=== PATIENT | male | born 1950 | race Caucasian/White ===

== ENCOUNTER 2017-10-08 11:19 | Emergency (ER) | payer MEDICARE, OTHER, SELFPAY | END 2017-10-08 14:07 | disposition home or self-care (01) | PROVIDERS: Emergency Provider Emergency Medicine; PCP Family Medicine; Visit Provider Emergency Medicine | DX: R09.1 Pleurisy (principal); M94.0 Chondrocostal junction syndrome [Tietze] | CPT/HCPCS: 71020; 71046; 80053; 83880; 84484; 85025; 85610; 85730; 93005; 93010; 94664; 96374; 99058; 99285; J1885 ==

== ENCOUNTER 2019-06-28 12:19 | Emergency (ER) | payer MEDICARE, OTHER, SELFPAY ==
[2019-06-28 12:25] VITALS: BP 211/90; PULSE 53; RESP 16; TEMP 35.9; O2SAT 99
--- NOTE | 2019-06-28 13:02 | ED_ITS ---
HPI - General Adult General Chief complaint: Hypertension Stated complaint: Extremely High BP Time Seen by Provider: 06/28/19 12:51 Source: patient Mode of arrival: Ambulatory Limitations: no limitations History of Present Illness HPI narrative: 68-year-old male nonsmoker with noncontributory medical history presents with a chief complaint of steadily rising blood pressures over about the past 10 days. He has never had a history of hypertension and takes no meds but blood pressure was found to be elevated at a routine physical about 10 days ago at which point they requested that he start charting what his blood pressures are doing. Patient denies any symptoms whatsoever. He has no dizziness, lightheadedness or weakness. He denies blurred vision or trouble with speech. Denies chest pain or shortness of breath. He has had no nausea, vomiting or diarrhea. Onset (ago): week(s) Relieving factors: none Exacerbating factors: none Associated symptoms: denies other symptoms Treatments prior to arrival: none Related Data Home Medications Medication Instructions Recorded Confirmed CA PANTOTHENATE/FOLIC ACID/VIT 1 tab PO QDAY #0 10/16/12 06/04/19 (MULTIVITAMIN) aspirin 81 mg tablet,delayed 81 mg PO DAILY 06/04/19 06/04/19 release omeprazole 20 mg tablet,delayed 20 mg PO DAILY 06/04/19 06/04/19 release Previous Rx's Medication Instructions Recorded amlodipine 5 mg PO DAILY #14 tab 06/28/19 Allergies Allergy/AdvReac Type Severity Reaction Status Date / Time niacin [NIACIN] Allergy Mild Verified 06/04/19 08:01 Review of Systems Constitutional Constitutional: Denies chills, Denies fatigue, Denies fever(s), Denies frequent falls, Denies lethargy and Denies weakness Eyes Eyes: Denies change in vision, Denies eye discharge, Denies irritation and Denies loss of vision ENT Ears, Nose, Mouth, and Throat: Denies change in voice, Denies dizziness, Denies neck pain, Denies sore throat and Denies throat swelling Cardiovascular Cardiovascular: Denies chest pain, Denies irregular heart rhythm, Denies lightheadedness, Denies palpitations, Denies dyspnea, Denies dyspnea on exertion and Denies orthopnea Respiratory Respiratory: Denies cough, Denies dyspnea, Denies dyspnea on exertion and Denies wheezing Gastrointestinal Gastrointestinal: Denies abdominal pain, Denies change in bowel habits, Denies diarrhea, Denies nausea and Denies vomiting Genitourinary Genitourinary: Denies hematuria, Denies flank pain, Denies urinary incontinence and Denies urinary urgency Musculoskeletal Musculoskeletal: Denies back pain, Denies muscle weakness, Denies neck pain, Denies numbness and Denies tingling Integumentary/Breasts Skin/Breast: Denies pruritus, Denies erythema, Denies rash and Denies wounds Neurologic Neurologic: Denies behavioral changes, Denies confusion, Denies dizziness, Denies frequent falls, Denies loss of vision, Denies numbness, Denies tingling and Denies weakness Psychiatric Psychiatric: Denies anxiety, Denies behavioral changes, Denies confusion, Denies depression, Denies homicidal ideation and Denies suicidal ideation Endocrine Endocrine: Denies fatigue, Denies flushing and Denies palpitations Hematologic/Lymphatic Hematologic/Lymphatic: Denies easy bruising Allergic/Immunologic Allergic/Immunologic: Denies urticaria, Denies throat swelling and Denies wheezing Patient History Medical History Erectile dysfunction (Acute) Thrombosed external hemorrhoid (Acute) Trigger finger (Acute) Trigger finger of left hand (Acute) White coat syndrome with diagnosis of hypertension (Acute) Surgical History Status post cholecystectomy Status post hernia repair Family History Father Heart disease Mother Heart disease Social History Smoking Status: Former smoker Smoking Status: Former smoker alcohol intake frequency: 0-2 drinks per day Substance Use Type: does not use Exam Narrative Exam Narrative: GENERAL: [68] year old patient appears stated age. Well- nourished, well-developed patient, in mild distress. HEAD: Atraumatic. Normocephalic. EYES: Pupils equal round and reactive. Extraocular motions intact. No scleral icterus. No injection or drainage. ENT: Nose without bleeding, purulent drainage. Throat without erythema, tonsillar hypertrophy or exudate. Airway patent. NECK: Trachea midline. Non tender CARDIOVASCULAR: Regular rate and rhythm without murmurs, gallops, or rubs. RESPIRATORY: Clear to auscultation. Breath sounds equal bilaterally. No wheezes, rales, or rhonchi. GASTROINTESTINAL: Abdomen soft, non-tender, nondistended. EXTREMITIES: No edema or joint tenderness. BACK: Nontender without deformity or crepitance. No flank tenderness. NEURO: AOx3. SKIN: No rash or erythema of visible areas Initial Vital Signs Initial Vital Signs: Vital Signs Temperature 96.6 F L 06/28/19 12:25 Pulse Rate 53 L 06/28/19 12:25 Respiratory Rate 16 06/28/19 12:25 Blood Pressure 211/90 H 06/28/19 12:25 Pulse Oximetry 99 06/28/19 12:25 Course Orders Ordered: ED Orders 06/28/19 13:14 Basic Metabolic Panel Stat Complete Blood Count AUTO DIFF Stat Troponin & CK Cardiac Panel Stat Vital Signs Vital signs: Vital Signs - 8 hr 06/28/19 12:25 06/28/19 13:40 06/28/19 14:12 Temperature 96.6 F L Pulse Rate 53 L 52 L 56 L Respiratory Rate 16 12 Blood Pressure 211/90 H 199/84 H Blood Pressure [Right Arm] 213/104 H Pulse Oximetry 99 100 99 Medical Decision Making Lab Data Result diagrams: 06/28/19 13:14 06/28/19 13:14 Labs: Lab Results 06/28/19 06/28/19 Range/Units 13:14 13:14 WBC 7.8 (4.5-11.0) X10^3/uL RBC 4.72 (4.5-5.9) X10^6/uL Hgb 14.6 (13.5-17.5) g/dL Hct 41.6 (41-53) % MCV 88.2 (80-100) fL MCH 31.1 (26-34) PG MCHC 35.2 (30-36) % RDW 14.0 (11.6-14.8) % Plt Count 197 (150-400) X10^3/uL Neut % (Auto) 60.4 (50-75) % Lymph % (Auto) 27.0 (25-40) % [place] % (Auto) 9.6 (3-14) % Eos % (Auto) 1.9 L (2-4) % Baso % (Auto) 1.1 (0-2) % Neut # (Auto) 4700 (0233-8481) /uL Lymph # (Auto) 2100 (2918-1592) /uL [place] # (Auto) 800 (0-900) /uL Eos # (Auto) 200 (0-450) /uL Baso # (Auto) 100 (0-100) /uL Sodium 140 (137-145) mmol/L Potassium 4.3 (3.4-5.1) mmol/L Chloride 102 (98-107) mmol/L Carbon Dioxide 31 (22-32) mmol/L BUN 21 H (9-20) mg/dL Creatinine 1.20 (0.66-1.25) mg/dL Estimated GFR 59.9 L (>60) mL/min BUN/Creatinine Ratio 17.5 (6-22) Glucose 88 (80-110) mg/dL Calcium 9.5 (8.4-10.2) mg/dL Total Creatine Kinase 61 (55-170) U/L CK-MB (CK-2) TNP CK-MB (CK-2) Rel Index TNP Troponin I < 0.012 (0.01-0.034) ng/mL ECG Data Attestation: I personally reviewed and interpreted this ECG as follows: Prior ECG tracings: not available for review Interpretation: EKG is normal sinus rhythm rate [51 ] and free of any signs of ischemia or ectopy. No ST segmental elevation or depression. No T wave inversions Discharge Plan Departure Patient Disposition: Home Clinical Impression: Hypertension Qualifiers: Hypertension type: essential hypertension Qualified Code(s): I10 - Essential (primary) hypertension Discharge Date/Time: 06/28/19 14:13 Instructions: DI for High Blood Pressure Activity Restrictions/Additional Instructions: *You have been diagnosed with [hypertension] *What to do: *Take medications as directed: Amlodipine was sent to [facility] in [place] *Follow up with your primary care provider in 2-3 days, call for an appointment. Let them know you were seen in the Emergency Department and that we ask that you be seen in follow up *Return to ER if you should have any new, worsening or concerning symptoms Prescriptions: New amlodipine 5 mg tablet 5 mg PO DAILY Qty: 14 RF: 0 No Action CA PANTOTHENATE/FOLIC ACID/VIT (MULTIVITAMIN) 1 tab PO QDAY Qty: 0 RF: 0 aspirin 81 mg tablet,delayed release (DR/EC) 81 mg PO DAILY RF: 0 omeprazole 20 mg tablet,delayed release (DR/EC) 20 mg PO DAILY RF: 0 Referrals: Vic Ny DO [Primary Care Provider] -
[2019-06-28 13:33] LABS: Add Manual Diff / Slide Review NO; Basophils Absolute Auto 100 /uL (0-100); Basophils Percent Auto 1.1 % (0-2); Eosinophils Absolute Auto 200 /uL (0-450); Eosinophils Percent Auto 1.9 % (2-4); Hematocrit 41.6 % (41-53); Hemoglobin 14.6 g/dL (13.5-17.5); Lymphocytes Absolute Auto 2100 /uL (1100-4500); Mean Corpuscular HGB Conc 35.2 % (30-36); Mean Corpuscular Hemoglobin 31.1 PG (26-34); Mean Corpuscular Volume 88.2 fL (80-100); Monocytes Absolute Auto 800 /uL (0-900); Monocytes Percent Auto 9.6 % (3-14); Neutrophils Absolute Auto 4700 /uL (1500-7000); Neutrophils Percent Auto 60.4 % (50-75); Platelet Count 197 X10^3/uL (150-400); Red Blood Cell Count 4.72 X10^6/uL (4.5-5.9); White Blood Cell Count 7.8 X10^3/uL (4.5-11.0)
[2019-06-28 13:40] VITALS: BP 213/104; PULSE 52; O2SAT 100
[2019-06-28 13:44] LABS: BUN Creatinine Ratio 17.5 (6-22); Blood Urea Nitrogen 21 mg/dL (9-20); Calcium 9.5 mg/dL (8.4-10.2); Carbon Dioxide 31 mmol/L (22-32); Chloride 102 mmol/L (98-107); Creatine Kinase 61 U/L (55-170); Estimated Glomerular Filt Rate 59.9 mL/min (>60); Glucose 88 mg/dL (80-110); HEMOLYSIS < 15 (0-50); Potassium 4.3 mmol/L (3.4-5.1); Sodium 140 mmol/L (137-145)
[2019-06-28 13:56] LABS: Troponin I < 0.012 ng/mL (0.01-0.034)
[2019-06-28 14:12] VITALS: BP 199/84; PULSE 56; RESP 12; O2SAT 99
== END 2019-06-28 14:13 | disposition home or self-care (01) ==
PROVIDERS: Emergency Provider Emergency Medicine; PCP Family Medicine
DX: I10 Essential (primary) hypertension (principal)
CPT/HCPCS: 36415; 80048; 82550; 84484; 85025; 93005; 99283; 99284

== ENCOUNTER → 2020-03-26 07:34 | Outpatient (CLI) | payer MEDICARE, OTHER, SELFPAY ==
[2020-03-26 08:46] LABS: Add Manual Diff / Slide Review NO; Basophils Absolute Auto 100 /uL (0-100); Basophils Percent Auto 1.3 % (0-2); Eosinophils Absolute Auto 200 /uL (0-450); Eosinophils Percent Auto 2.6 % (2-4); Hemoglobin 14.3 g/dL (13.5-17.5); Lymphocytes Absolute Auto 1700 /uL (1100-4500); Mean Corpuscular HGB Conc 34.1 % (30-36); Mean Corpuscular Hemoglobin 30.4 PG (26-34); Mean Corpuscular Volume 89.4 fL (80-100); Monocytes Absolute Auto 600 /uL (0-900); Monocytes Percent Auto 10.4 % (3-14); Neutrophils Absolute Auto 3400 /uL (1500-7000); Neutrophils Percent Auto 56.7 % (50-75); Platelet Count 191 X10^3/uL (150-400); Red Cell Distribution Width 13.8 % (11.6-14.8); White Blood Cell Count 5.9 X10^3/uL (4.5-11.0)
[2020-03-26 09:42] LABS: Alanine Aminotransferase 20 IU/L (<50); Albumin 4.1 g/dL (3.5-5.0); Albumin Globulin Ratio 1.6 (1.0-2.8); Alkaline Phosphatase 90 U/L (38-126); Aspartate Aminotransferase 28 IU/L (17-59); BUN Creatinine Ratio 18.6 (6-22); Bilirubin Total 0.9 mg/dL (0.2-1.3); Blood Urea Nitrogen 22 mg/dL (9-20); Carbon Dioxide 30 mmol/L (22-32); Chloride 103 mmol/L (98-107); Cholesterol 160 mg/dL (140-199); Estimated Glomerular Filt Rate > 60.0 mL/min (>60); Globulin 2.6 g/dL (1.7-4.1); Glucose 87 mg/dL (80-110); HDL Cholesterol 40 mg/dL (40-60); HEMOLYSIS < 15 (0-50); LDL Cholesterol Calculated 97 mg/dL (<100); Potassium 4.5 mmol/L (3.4-5.1); Sodium 138 mmol/L (137-145); Total Protein 6.7 g/dL (6.3-8.2); Triglycerides 113 mg/dL (35-150)
== END ==
PROVIDERS: PCP Family Medicine; Referring Provider Family Medicine; Visit Provider Family Medicine
DX: Z13.220 Encounter for screening for lipoid disorders (principal); Z13.228 Encounter for screening for other metabolic disorders; I10 Essential (primary) hypertension
CPT/HCPCS: 36415; 80053; 80061; 85025

== ENCOUNTER 2023-02-12 07:45 | Emergency (ER) | payer MEDICARE, OTHER, SELFPAY ==
[2023-02-12 08:01] VITALS: BP 129/72; PULSE 70; RESP 16; TEMP 36.7; O2SAT 99; BMI 31.4
--- NOTE | 2023-02-12 08:34 | ED.GENADULT ---
HPI - General Adult General Chief complaint: Ear Stated complaint: thinks he punctured LT eardrum Time Seen by Provider: 02/12/23 08:24 Source: patient Mode of arrival: Ambulatory Limitations: no limitations History of Present Illness HPI narrative: Patient is a 72-year-old male who is here for evaluation of concern for a punctured left eardrum. He states yesterday morning was in a guzman. He was using a Q-tip in his unsure whether not it was the Q-tip or his hearing aid that he put in his ear. He states he would a very sharp pain and since that time has had decreased hearing in his left ear. Related Data Home Medications Medication Instructions Recorded Confirmed CA PANTOTHENATE/FOLIC ACID/VIT 1 tab PO QDAY ##0 10/16/12 06/03/20 (MULTIVITAMIN) aspirin 81 mg tablet,delayed 81 mg PO DAILY 06/04/19 06/03/20 release hydrochlorothiazide 25 mg tablet 12.5 mg PO DAILY 06/03/20 06/03/20 propranolol 10 mg tablet 10 mg PO TID 06/03/20 06/03/20 Previous Rx's Medication Instructions Recorded hydrochlorothiazide 12.5 mg tablet 12.5 mg PO DAILY #90 tabs 07/29/19 losartan 50 mg tablet 50 mg PO DAILY htn 30 days #30 tabs 06/03/20 Allergies Allergy/AdvReac Type Severity Reaction Status Date / Time niacin [NIACIN] Allergy Mild Verified 06/03/20 09:51 Review of Systems ENT Ears, Nose, Mouth, and Throat: Reports system reviewed and no additional complaints, except as documented Integumentary/Breasts Skin/Breast: Reports system reviewed and no additional complaints, except as documented Patient History Medical History Erectile dysfunction Excessive cerumen in left ear canal HTN (hypertension) Thrombosed external hemorrhoid Trigger finger Trigger finger of left hand White coat syndrome with diagnosis of hypertension Surgical History Status post cholecystectomy Status post hernia repair Family History Father Heart disease Mother Heart disease Social History Smoking Status: Former smoker Smoking Status: Former smoker alcohol intake frequency: 0-2 drinks per day Substance Use Type: does not use Exam Initial Vital Signs Initial Vital Signs: Vital Signs Temperature 98.0 F 02/12/23 08:01 Pulse Rate 70 02/12/23 08:01 Respiratory Rate 16 02/12/23 08:01 Blood Pressure 129/72 02/12/23 08:01 Pulse Oximetry 99 02/12/23 08:01 Oxygen Delivery Method Room Air 02/12/23 08:01 HENMT Head: normal to inspection and normocephalic HENMT Other: Patient has a cotton Q-tip and in his left external auditory canal. Skin General: no rashes or lesions noted Neuro General: patient alert and patient awake Procedures Foreign Body EAR Location: ear canal (L) Foreign Body Suspected: other (Cotton) TM intact pre-procedure: unable to visualize Foreign Body Removed: yes Foreign Body Removal Technique: instrumentation Course Vital Signs Vital signs: Vital Signs - 8 hr 02/12/23 08:01 Temperature 98.0 F Pulse Rate 70 Respiratory Rate 16 Blood Pressure 129/72 Pulse Oximetry 99 Oxygen Delivery Method Room Air Medical Decision Making MDM Narrative Medical decision making narrative: I was able to remove what appears to be an intact cotton tip from a Q-tip from his left ear. The external auditory canal afterwards appears well however he either has retained cotton in his left ear where he has an abnormal tympanic membrane that has ruptured. This is to deep in order for me to safely investigate further. I recommended that the patient be followed up by ear nose and throat. Discharge Plan Departure Patient Disposition: Home Clinical Impression: Acute foreign body of left ear Activity Restrictions/Additional Instructions: There is potential that you either have more cotton in your left ear or the tympanic membrane is ruptured. I recommend that you follow-up with the ear nose and throat providers. You can contact them with the number provided below. Prescriptions: No Action CA PANTOTHENATE/FOLIC ACID/VIT (MULTIVITAMIN) 1 tab PO QDAY Qty: 0 aspirin 81 mg tablet,delayed release (DR/EC) 81 mg PO DAILY hydrochlorothiazide 12.5 mg tablet 12.5 mg PO DAILY Qty: 90 1RF hydrochlorothiazide 25 mg tablet 12.5 mg PO DAILY propranolol 10 mg tablet 10 mg PO TID losartan 50 mg tablet 50 mg PO DAILY 30 Days Qty: 30 2RF Referrals: Nino Zhao MD [Physician] - Earl Ny DO [Primary Care Provider] - Stand Alone Forms: Patient Portal/API
== END 2023-02-12 08:41 | disposition home or self-care (01) ==
PROVIDERS: Emergency Provider Emergency Medicine; PCP Family Medicine
DX: T16.2XXA Foreign body in left ear, initial encounter (principal)
CPT/HCPCS: 69200; 99281; 99283

== ENCOUNTER 2024-10-27 15:35 | Emergency (ER) | payer MEDICARE, OTHER, SELFPAY ==
[2024-10-27] VITALS (21 sets, daily range): BP systolic 98–136; BP diastolic 56–78; PULSE 82–101; RESP 16–43; TEMP 36.2; O2SAT 93–98
--- NOTE | 2024-10-27 15:44 | EKG_ITS ---
[id number] [address] Test Date: 2024-10-27 Pat Name: Selvin Perry Department: Room: Gender: Male [employer] Merchandising Manager: NAKUL : 1950 Requested By: Order Number: [id number] Reading MD: Ronn Mirza MD Measurements Intervals [place] Rate: 92 P: [place]: QRS: -16 QRSD: 78 T: -9 QT: 372 QTc: 460 Interpretive Statements Atrial fibrillation Electronically Signed On 10-27-2024 17:02:10 PDT by Ronn Mirza MD
--- NOTE | 2024-10-27 15:58 | PC.NURSE ---
Reports chest pain with radiation to left side of neck.
[2024-10-27 16:05] LABS: Add Manual Diff / Slide Review NO; Basophils Absolute Auto 100 /uL (0-100); Basophils Percent Auto 0.6 % (0-2); Eosinophils Absolute Auto 100 /uL (0-450); Hematocrit 40.3 % (41-53); Hemoglobin 13.9 g/dL (13.5-17.5); Lymphocytes Absolute Auto 1900 /uL (1100-4500); Lymphocytes Percent Auto 17.1 % (25-40); Mean Corpuscular HGB Conc 34.5 % (30-36); Mean Corpuscular Hemoglobin 31.2 PG (26-34); Mean Corpuscular Volume 90.2 fL (80-100); Monocytes Absolute Auto 1300 /uL (0-900); Monocytes Percent Auto 11.8 % (3-14); Neutrophils Absolute Auto 7700 /uL (1500-7000); Neutrophils Percent Auto 69.5 % (50-75); Platelet Count 203 X10^3/uL (150-400); Red Blood Cell Count 4.47 X10^6/uL (4.5-5.9); Red Cell Distribution Width 14.9 % (11.6-14.8); White Blood Cell Count 11.1 X10^3/uL (4.5-11.0)
--- NOTE | 2024-10-27 16:09 | EKG_ITS ---
[id number] [address] Test Date: 2024-10-27 Pat Name: Selvin Perry Department: Room: Gender: Male Study Coordinator: NAKUL : 1950 Requested By: Order Number: [id number] Reading MD: Ronn Mirza MD Measurements Intervals [place] Rate: 85 P: [place]: QRS: -23 QRSD: 82 T: -8 QT: 374 QTc: 445 Interpretive Statements Atrial fibrillation Electronically Signed On 10-28-2024 7:43:08 PDT by Ronn Mirza MD
[2024-10-27 16:11] LABS: Alanine Aminotransferase 63 IU/L (<50); Albumin 4.6 g/dL (3.5-5.0); Albumin Globulin Ratio 1.7 (1.0-2.8); Alkaline Phosphatase 116 U/L (38-126); Aspartate Aminotransferase 58 IU/L (17-59); BUN Creatinine Ratio 16.4 (6-22); Bilirubin Total 0.7 mg/dL (0.2-1.3); Blood Urea Nitrogen 19 mg/dL (9-20); Calcium 9.2 mg/dL (8.4-10.2); Carbon Dioxide 28 mmol/L (22-32); Chloride 99 mmol/L (98-107); Creatine Kinase 47 U/L (55-170); Estimated Glomerular Filt Rate > 60 mL/min (>60); Globulin 2.7 g/dL (1.7-4.1); Glucose 95 mg/dL (70-99); HEMOLYSIS < 15 (0-50); Lipase 99 U/L (23-300); Potassium 3.2 mmol/L (3.4-5.1); Sodium 134 mmol/L (137-145); Total Protein 7.3 g/dL (6.3-8.2)
--- NOTE | 2024-10-27 16:18 | DI.CT.S_ITS ---
PROCEDURE: CT ANGIO CHEST PE PROTOCOL INDICATIONS: left chest pain abalation on last week TECHNIQUE: After the administration of intravenous contrast, 2 mm thick sections acquired from the pulmonary apices to the posterior costophrenic angles. 3-dimensional maximum intensity projection (MIP) coronal and sagittal reformats were then acquired through the thorax. For radiation dose reduction, the following was used: automated exposure control, adjustment of mA and/or kV according to patient size. COMPARISON: None. FINDINGS: Image quality: Diagnostic. Pulmonary arteries: Pulmonary arteries are normal in size, and demonstrate no intraluminal filling defects to suggest central pulmonary embolism. Lower Neck: No enlarged lymph nodes. Thyroid: No thyroid nodules which require sonographic follow up, per consensus guidelines. Axillae: No enlarged lymph nodes. Chest Wall: Unremarkable. Bones: Unremarkable. Lungs and Pleura: Dependent changes are present within the bases bilaterally without consolidation. Heart: Heart size is normal. No pericardial effusion. Thoracic Vessels: No aortic aneurysm. Mediastinum and Tete: No enlarged lymph nodes. Esophagus: No wall thickening. No hiatal hernia. Upper Abdomen: Visualized upper abdomen solid organs and bowel loops appear normal. IMPRESSION: No pulmonary embolus. Mild dependent changes are present the bases bilaterally. Dictated by: Jaylene Alfaro M.D. on 10/27/2024 at 16:56 Approved by: Jaylene Alfaro M.D. on 10/27/2024 at 16:57
[2024-10-27 16:25] LABS: Troponin I 0.374 ng/mL (0.01-0.034)
[2024-10-27] MEDS: HYDROMORPHONE 0.5 MG INJ IV (16:27)
--- NOTE | 2024-10-27 16:49 | ED_ITS ---
HPI - Chest Pain General Chief Complaint: Chest Pain Stated Complaint: L Upper Chest Px Time Seen by Provider: 10/27/24 16:18 Source: patient and EMS Mode of arrival: EMS Limitations: no limitations History of Present Illness HPI narrative: Patient is a 74-year-old male atrial flutter status post ablation last week presenting today with pretty severe left-sided chest pain. He had procedure done on October [address] [facility]. He says that he was not sinus rhythm when he left he was expected to be in and out of atrial fibrillation for the next 3 months incidentally a bit dilation has a totally take an affect. However yesterday and today he started having pretty severe left-sided chest pain. He did have a CT chest done 06/24/2024 prior to procedure thinks he had a CT after the procedure as well however after reviewing [facility] records and not seeing that. He denies any significant shortness of breath. Reports that lying down definitely makes his chest pain worse. Related Data Home Medications Medication Instructions Recorded Confirmed CA PANTOTHENATE/FOLIC ACID/VIT 1 tab PO QDAY ##0 10/16/12 03/24/24 (MULTIVITAMIN) amlodipine 2.5 mg tablet 2.5 mg PO DAILY 03/24/24 03/24/24 apixaban 5 mg tablet (Eliquis) 5 mg PO BID 03/24/24 03/24/24 magnesium aspart,citrate,oxide mg PO 03/24/24 03/24/24 metoprolol succinate 50 mg 75 mg PO DAILY 03/24/24 03/24/24 tablet,extended release 24 hr metoprolol tartrate 25 mg tablet 12.5 mg PO BID PRN 03/24/24 03/24/24 omeprazole 20 mg capsule,delayed 20 mg PO DAILY 03/24/24 03/24/24 release prazosin 1 mg capsule 1 mg PO BEDTIME 03/24/24 03/24/24 rosuvastatin 5 mg tablet 5 mg PO .COMPLEX 03/24/24 03/24/24 Previous Rx's Medication Instructions Recorded cyclobenzaprine 5 mg tablet 5 mg PO TID PRN muscle spasm #20 03/24/24 tabs colchicine 0.6 mg capsule 0.6 mg PO BID #28 caps 10/27/24 ibuprofen 400 mg tablet 400 mg PO Q8H #30 tabs 10/27/24 omeprazole 20 mg tablet,delayed 20 mg PO BID #30 tabs 10/27/24 release Allergies Allergy/AdvReac Type Severity Reaction Status Date / Time niacin [NIACIN] Allergy Mild Verified 06/03/20 09:51 Patient History Medical History Erectile dysfunction Excessive cerumen in left ear canal HTN (hypertension) Thrombosed external hemorrhoid Trigger finger Trigger finger of left hand White coat syndrome with diagnosis of hypertension Surgical History Status post cholecystectomy Status post hernia repair Family History Father Heart disease Mother Heart disease alcohol intake frequency: 0-2 drinks per day Exam Initial Vital Signs Initial Vital Signs: Vital Signs Pulse Rate 95 H 10/27/24 15:44 Respiratory Rate 28 H 10/27/24 15:44 Pulse Oximetry 97 10/27/24 15:44 GENERAL: Alert pleasant appears overall uncomfortable HEENT: Head atraumatic,EOMI, pupils reactive, face symmetric, moist mucous membranes CARDIOVASCULAR: Irregular no murmurs. Left-sided chest pain RESPIRATORY: Breath sounds equal bilaterally, no wheezes rales or rhonchi. ABDOMEN: Soft, nontender. Normoactive bowel sounds all 4 quadrants. No guarding or rebound. : No CVA tenderness EXTREMITIES: Normal range of motion, no clubbing or edema. Neurovascularly intact NEUROLOGICAL: Alert and oriented x4.Normal gait and speech. Cranial nerves II through XII grossly intact. SKIN: Warm, dry, no laceration, no petechiae, no rashes or lesions. Procedures Cardioversion Consent Signed: Yes Indication: Atrial fibrillation Stability: Stable Number of attempts (shocks): 2 Joules used: 120 and 150 Cardiac rhythm post-cardioversion: Atrial fibrillation Procedural Sedation Consent signed: Yes Time out performed: Yes Indication: cardioversion ASA Class: II Mallampati Airway Classification: Class II IV Propofol dose (mg): 75 Intraservice time/total sedation time (min): 19 ED Sedation Level: Moderate (Concious) Patient Tolerated Procedure: Well and No complications Complications: none Course Orders Ordered: ED Orders 10/27/24 15:36 Complete Blood Count AUTO DIFF Stat Comprehensive Metabolic Panel Stat Lipase Stat Troponin & CK Cardiac Panel Stat 10/27/24 15:59 EKG-12 Lead Stat 10/27/24 16:18 CT angio chest PE protocol Stat 10/27/24 17:45 Trop I [Troponin I] Stat 10/27/24 19:20 EKG-12 Lead Stat Sodium Chloride (Normal Saline 0.9%) 1,000 mls @ 150 mls/hr IV CONT LEANNA Last Admin: 10/27/24 16:01 Dose: Not Given Documented By: Discontinued Medications Aspirin (Aspirin 81 Mg Chew Tab) 324 mg PO NOW ONE Stop: 10/27/24 16:00 Last Admin: 10/27/24 16:00 Dose: Not Given Documented By: Colchicine (Colchicine 0.6 Mg Tablet) 1.2 mg PO NOW ONE Stop: 10/27/24 17:44 Last Admin: 10/27/24 18:00 Dose: 1.2 mg Documented By: Hydromorphone HCl (Hydromorphone 0.5 Mg Inj) 0.5 mg IV NOW ONE Stop: 10/27/24 16:19 Last Admin: 10/27/24 16:27 Dose: 0.5 mg Documented By: Ketorolac Tromethamine (Ketorolac 30 Mg/Ml Vial) 15 mg IV NOW ONE Stop: 10/27/24 17:43 Last Admin: 10/27/24 17:58 Dose: 15 mg Documented By: Propofol (Propofol 200 Mg/20 Ml Vial) 110 mg 1 mg/kg (110 mg) IV NOW ONE Stop: 10/27/24 18:10 Last Admin: 10/27/24 19:06 Dose: 75 mg Documented By: Vital Signs Vital signs: Vital Signs - 8 hr 10/27/24 15:44 10/27/24 15:48 10/27/24 15:48 Temperature Pulse Rate 95 H 86 Respiratory Rate 28 H 30 H Blood Pressure 134/76 Pulse Oximetry 97 98 Oxygen Delivery Method Oxygen Flow Rate 10/27/24 15:53 10/27/24 16:00 10/27/24 16:00 Temperature 97.1 F L Pulse Rate 85 82 Respiratory Rate 16 34 H Blood Pressure 136/78 125/73 Pulse Oximetry 98 96 Oxygen Delivery Method Room Air Oxygen Flow Rate 10/27/24 16:30 10/27/24 17:00 10/27/24 17:30 Temperature Pulse Rate 84 84 87 Respiratory Rate 36 H 22 28 H Blood Pressure Pulse Oximetry 98 95 96 Oxygen Delivery Method Oxygen Flow Rate 10/27/24 18:00 10/27/24 18:30 10/27/24 19:00 Temperature Pulse Rate 87 95 H 92 H Respiratory Rate 27 H 23 43 H Blood Pressure Pulse Oximetry 96 95 95 Oxygen Delivery Method Nasal Cannula Nasal Cannula Room Air Oxygen Flow Rate 2 2 10/27/24 19:05 10/27/24 19:11 10/27/24 19:15 Temperature Pulse Rate 96 H 100 H 90 Respiratory Rate 25 H 25 H 25 H Blood Pressure 125/73 125/78 98/61 Pulse Oximetry 95 96 94 Oxygen Delivery Method Oxygen Flow Rate 2 0 10/27/24 19:15 10/27/24 19:15 Temperature Pulse Rate 97 H Respiratory Rate 27 H Blood Pressure 98/61 Pulse Oximetry 95 Oxygen Delivery Method Room Air Oxygen Flow Rate MDM - Chest Pain Lab Data 10/27/24 15:36 10/27/24 15:36 Labs: Lab Results 10/27/24 10/27/24 Range/Units 15:36 17:45 WBC 11.1 H (4.5-11.0) X10^3/uL RBC 4.47 L (4.5-5.9) X10^6/uL Hgb 13.9 (13.5-17.5) g/dL Hct 40.3 L (41-53) % MCV 90.2 (80-100) fL MCH 31.2 (26-34) PG MCHC 34.5 (30-36) % RDW 14.9 H (11.6-14.8) % Plt Count 203 (150-400) X10^3/uL Neut % (Auto) 69.5 (50-75) % Lymph % (Auto) 17.1 L (25-40) % [place] % (Auto) 11.8 (3-14) % Eos % (Auto) 1.0 L (2-4) % Baso % (Auto) 0.6 (0-2) % Neut # (Auto) 7700 H (9754-5864) /uL Lymph # (Auto) 1900 (2405-6475) /uL [place] # (Auto) 1300 H (0-900) /uL Eos # (Auto) 100 (0-450) /uL Baso # (Auto) 100 (0-100) /uL Sodium 134 L (137-145) mmol/L Potassium 3.2 L (3.4-5.1) mmol/L Chloride 99 (98-107) mmol/L Carbon Dioxide 28 (22-32) mmol/L BUN 19 (9-20) mg/dL Creatinine 1.16 (0.66-1.25) mg/dL Estimated GFR > 60 (>60) mL/min BUN/Creatinine Ratio 16.4 (6-22) Glucose 95 (70-99) mg/dL Calcium 9.2 (8.4-10.2) mg/dL Total Bilirubin 0.7 (0.2-1.3) mg/dL AST 58 (17-59) IU/L ALT 63 H (<50) IU/L Alkaline Phosphatase 116 (38-126) U/L Total Creatine Kinase 47 L (55-170) U/L Troponin I 0.374 H* 0.322 H* (0.01-0.034) ng/mL Total Protein 7.3 (6.3-8.2) g/dL Albumin 4.6 (3.5-5.0) g/dL Globulin 2.7 (1.7-4.1) g/dL Albumin/Globulin Ratio 1.7 (1.0-2.8) Lipase 99 (23-300) U/L Urine Dip Bedside Urine Glucose Negative Bedside Urine Bilirubin - Negative Bedside Urine Ketone - Negative Urine Specific [place] 1.010 Bedside Urine Occult Blood - Negative Bedside Urine pH 7.0 Bedside Urine Protein - Negative Bedside Urine Urobilinogen - Negative Bedside Urine Nitrite - Negative Bedside Urine Leukocytes - Negative Esterase Imaging Data CT scan - chest: Radiologist's Impression: PROCEDURE: CT ANGIO CHEST PE PROTOCOL INDICATIONS: left chest pain abalation on last week TECHNIQUE: After the administration of intravenous contrast, 2 mm thick sections acquired from the pulmonary apices to the posterior costophrenic angles. 3-dimensional maximum intensity projection (MIP) coronal and sagittal reformats were then acquired through the thorax. For radiation dose reduction, the following was used: automated exposure control, adjustment of mA and/or kV according to patient size. COMPARISON: None. FINDINGS: Image quality: Diagnostic. Pulmonary arteries: Pulmonary arteries are normal in size, and demonstrate no intraluminal filling defects to suggest central pulmonary embolism. Lower Neck: No enlarged lymph nodes. Thyroid: No thyroid nodules which require sonographic follow up, per consensus guidelines. Axillae: No enlarged lymph nodes. Chest Wall: Unremarkable. Bones: Unremarkable. Lungs and Pleura: Dependent changes are present within the bases bilaterally without consolidation. Heart: Heart size is normal. No pericardial effusion. Thoracic Vessels: No aortic aneurysm. Mediastinum and Tete: No enlarged lymph nodes. Esophagus: No wall thickening. No hiatal hernia. Upper Abdomen: Visualized upper abdomen solid organs and bowel loops appear normal. IMPRESSION: No pulmonary embolus. Mild dependent changes are present the bases bilaterally. Dictated by: Jaylene Alfaro M.D. on 10/27/2024 at 16:56 ECG Data Attestation: I personally reviewed and interpreted this ECG as follows: Prior ECG tracings: available for review Interpretation: Atrial fibrillation rate age no ischemia EKGs 2. Atrial fibrillation rate 89 MDM Narrative Medical decision making narrative: MDM CC: Chest pain Complicating co-morbidities: Atrial fibrillation on Eliquis recent ablation Data collected from: Patient Medical records reviewed: Yes Differential considered: Pericardial effusion cardiac perforation and acute coronary syndrome atrial fibrillation Exam documented above, pertinent findings include: Troponin Lab Test results independently reviewed as above. Pertinent findings: Troponin 0.37--> 0.32 WBC 11.1, no anemia Electrolytes within normal mild hypokalemia potassium 3.2 creatinine 1.1 Independently reviewed EKG as above Atrial fibrillation He EKGs shows atrial fibrillation rate 89 Imaging studies independently reviewed: Consultations: Dr. Whalen cardiology [facility] who did his procedure. Updated on elevated troponin CT results thinks that this is likely pericarditis from the procedure. Recommends loading with colchicine 1.2 and then b.i.d. 0.6 for 2 weeks. Along with ibuprofen and omeprazole. She also reports that it is his pain can be controlled that he get cardioverted as well. Treatments: Dilaudid Toradol colchicine Re-evaluations: Attempted cardioversion shocked twice remains in atrial fibrillation Discussion: Patient is 74-year-old male who presents today with chest pain. He recently had an ablation at [facility]. Likely pericarditis secondary to procedure. Blood work is overall reassuring his elevated troponins likely secondary to procedure. Pain very well controlled with Dilaudid, but also given Toradol and colchicine. At this time we will discharge him home for treatment for pericarditis. [employer] Leader updated on failed cardioversion. Discharge Plan Departure Patient Disposition: Home Clinical Impression: Pericarditis Instructions: DI for Pericarditis Activity Restrictions/Additional Instructions: *You have been diagnosed with pericarditis *What to do: You likely are having inflammation from your recent procedure this should go away in about 2 weeks *Continue to take medications as directed Colchicine 0.6 mg twice a day for 2 weeks Ibuprofen 400 mg 3 times a day for 2 weeks Omeprazole 20 mg twice a day for 2 weeks *Follow up with your primary care provider in 2-3 days or call [phone] Whalen *Return to ER if you should have increasing chest pain shortness of breath weakness or any new, worsening or concerning symptoms Prescriptions: New colchicine 0.6 mg capsule 0.6 mg PO BID Qty: 28 0RF ibuprofen 400 mg tablet 400 mg PO Q8H Qty: 30 0RF omeprazole 20 mg tablet,delayed release (DR/EC) 20 mg PO BID Qty: 30 0RF No Action metoprolol succinate 50 mg tablet extended release 24 hr 75 mg PO DAILY metoprolol tartrate 25 mg tablet 12.5 mg PO BID PRN Eliquis 5 mg tablet 5 mg PO BID amlodipine 2.5 mg tablet 2.5 mg PO DAILY omeprazole 20 mg capsule,delayed release(DR/EC) 20 mg PO DAILY rosuvastatin 5 mg tablet 5 mg PO .COMPLEX Rx Instructions: 5mg PO AM Sunday/Sunday/Sunday only magnesium aspart,citrate,oxide 400 mg magnesium capsule PO prazosin 1 mg capsule 1 mg PO BEDTIME cyclobenzaprine 5 mg tablet 5 mg PO TID PRN (Reason: muscle spasm) Qty: 20 0RF CA PANTOTHENATE/FOLIC ACID/VIT (MULTIVITAMIN) 1 tab PO QDAY Qty: 0 Referrals: Earl Ny DO [Primary Care Provider] - Stand Alone Forms: Patient Portal/API/Survey
[2024-10-27] MEDS: KETOROLAC 30 MG/ML VIAL 15 MG IV (17:58)
[2024-10-27] MEDS: COLCHICINE 0.6 MG TABLET 1.2 MG PO (18:00)
[2024-10-27 18:26] LABS: Troponin I 0.322 ng/mL (0.01-0.034)
[2024-10-27] MEDS: propofoL 200 MG/20 ML VIAL 110 MG IV (19:06)
--- NOTE | 2024-10-27 19:30 | EKG_ITS ---
[id number], [place] [address] Test Date: 2024-10-27 Pat Name: Selvin Perry Department: Room: Gender: Male Registered Nurse Teacher: HORACIO : 1950 Requested By: Order Number: [id number] Reading MD: Ronn Mirza MD Measurements Intervals Garvin Rate: 89 P: NH: QRS: -21 QRSD: 84 T: -10 QT: 374 QTc: 455 Interpretive Statements Atrial fibrillation with premature ventricular or aberrantly conducted complexes Electronically Signed On 10-28-2024 10:39:26 PDT by Ronn Mirza MD
== END 2024-10-27 19:42 | disposition home or self-care (01) ==
PROVIDERS: Emergency Provider Emergency Medicine; PCP Family Medicine
DX: I31.9 Disease of pericardium, unspecified (principal); I48.91 Unspecified atrial fibrillation; R07.9 Chest pain, unspecified
CPT/HCPCS: 71275; 80053; 81003; 82550; 83690; 84484; 85025; 92960; 93005; 93010; 96374; 96375; 99152; 99285; J1171; J1885; J2704; Q9967

== ENCOUNTER 2025-06-01 13:04 | Emergency (ER) | payer MEDICARE, OTHER, SELFPAY ==
[2025-06-01 13:13] VITALS: BP 126/80; PULSE 70; RESP 16; TEMP 36.3; O2SAT 98; BMI 30.7
--- NOTE | 2025-06-01 13:18 | DI.RAD.S_ITS ---
PROCEDURE: XR FOOT RT MIN 3V INDICATIONS: swelling, redness TECHNIQUE: 4 views of the foot were acquired. COMPARISON: None. FINDINGS: Bones: No fractures or dislocations. Degenerative changes, most pronounced involving the 1st MTP joint. No suspicious bony lesions. Soft tissues: No tibiotalar joint effusion. Achilles tendon appears normal. IMPRESSION: Degenerative changes, most pronounced involving the 1st MTP joint. No acute osseous abnormalities. Dictated by: Mike Barnes M.D. on 06/01/2025 at 14:24 Approved by: Mike Barnes M.D. on 06/01/2025 at 14:26
--- NOTE | 2025-06-01 18:34 | ED.SKABFB ---
HPI - Skin/Abscess/Foreign Bdy General Chief complaint: Skin/Abscess/Foreign Body Stated complaint: Possible celluitis or bite on Right foot. Time Seen by Provider: 06/01/25 13:18 Source: patient Mode of arrival: Ambulatory History of Present Illness HPI narrative: 74-year-old male with past medical history atrial flutter, status post ablation presents to the ED with right-sided big toe pain. Patient states that the pain started 2 days ago, patient is unsure if it might have been an insect bite. The toe has become increasingly swollen, erythematous and painful. No trauma. Patient is able to bear weight and walk, albeit with pain. Related Data Home Medications ?Medication ?Instructions ?Recorded ?Confirmed CA PANTOTHENATE/FOLIC ACID/VIT 1 tab PO QDAY ##0 10/16/12 03/24/24 (MULTIVITAMIN) amlodipine 2.5 mg tablet 2.5 mg PO DAILY 03/24/24 03/24/24 apixaban 5 mg tablet (Eliquis) 5 mg PO BID 03/24/24 03/24/24 magnesium aspart,citrate,oxide mg PO 03/24/24 03/24/24 metoprolol succinate 50 mg 75 mg PO DAILY 03/24/24 03/24/24 tablet,extended release 24 hr metoprolol tartrate 25 mg tablet 12.5 mg PO BID PRN 03/24/24 03/24/24 omeprazole 20 mg capsule,delayed 20 mg PO DAILY 03/24/24 03/24/24 release prazosin 1 mg capsule 1 mg PO BEDTIME 03/24/24 03/24/24 rosuvastatin 5 mg tablet 5 mg PO .COMPLEX 03/24/24 03/24/24 Previous Rx's ?Medication ?Instructions ?Recorded cyclobenzaprine 5 mg tablet 5 mg PO TID PRN muscle spasm #20 03/24/24 tabs colchicine 0.6 mg capsule 0.6 mg PO BID #28 caps 10/27/24 ibuprofen 400 mg tablet 400 mg PO Q8H #30 tabs 10/27/24 omeprazole 20 mg tablet,delayed 20 mg PO BID #30 tabs 10/27/24 release cephalexin 500 mg capsule 500 mg PO QID 5 days #20 caps 06/01/25 Allergies Allergy/AdvReac Type Severity Reaction Status Date / Time niacin (NIACIN) AdvReac Mild Flushed Verified 06/01/25 13:13 Review of Systems Constitutional Constitutional: Denies chills, Denies fatigue, Denies fever(s), Denies frequent falls, Denies lethargy and Denies weakness Eyes Eyes: Denies change in vision, Denies eye discharge, Denies irritation and Denies loss of vision ENT Ears, Nose, Mouth, and Throat: Denies change in voice, Denies dizziness, Denies neck pain, Denies sore throat and Denies throat swelling Cardiovascular Cardiovascular: Denies chest pain, Denies irregular heart rhythm, Denies lightheadedness, Denies palpitations, Denies dyspnea, Denies dyspnea on exertion and Denies orthopnea Respiratory Respiratory: Denies cough, Denies dyspnea, Denies dyspnea on exertion and Denies wheezing Gastrointestinal Gastrointestinal: Denies abdominal pain, Denies change in bowel habits, Denies diarrhea, Denies nausea and Denies vomiting Musculoskeletal Musculoskeletal: Denies neck pain and Denies numbness Comments: R big toe pain, swelling, redness Integumentary/Breasts Skin/Breast: Denies pruritus, Denies erythema, Denies rash and Denies wounds Neurologic Neurologic: Denies behavioral changes, Denies confusion, Denies dizziness, Denies frequent falls, Denies loss of vision, Denies numbness and Denies weakness Psychiatric Psychiatric: Denies anxiety, Denies behavioral changes, Denies confusion, Denies depression, Denies homicidal ideation and Denies suicidal ideation Endocrine Endocrine: Denies fatigue, Denies flushing and Denies palpitations Hematologic/Lymphatic Hematologic/Lymphatic: Denies easy bruising Allergic/Immunologic Allergic/Immunologic: Denies urticaria, Denies throat swelling and Denies wheezing Patient History Medical History Excessive cerumen in left ear canal HTN (hypertension) Trigger finger Trigger finger of left hand White coat syndrome with diagnosis of hypertension Erectile dysfunction Thrombosed external hemorrhoid Surgical History Status post cholecystectomy Status post hernia repair Family History Father Heart disease Mother Heart disease alcohol intake frequency: 0-2 drinks per day Exam Narrative Exam Narrative: Const General:?cooperative, healthy appearing and comfortable HENIA Head:?normal to inspection Ears:?hearing grossly normal bilaterally Nose:?external nose normal Face and sinus:?normal facial exam and sinuses nontender Mouth:?oral mucosae normal Throat:?posterior oropharynx normal Eyes General:?appearance normal, both eyes and all related structures Neck Neck:?normal visual inspection and no lymphadenopathy noted Resp Effort & Inspection:?normal respiratory effort Auscultation:?clear to auscultation bilaterally Cardio Rate:?regular rate Rhythm:?regular rhythm Musculoskeletal/integumentary There is erythema, swelling, tenderness to the base of the 1st metatarsal of the right foot. Full range of motion. Strength and sensation is intact. Neurovascularly intact. Neuro General:?patient alert, patient awake and patient oriented x3 Initial Vital Signs Initial Vital Signs: Vital Signs Temperature 97.4 F L 06/01/25 13:13 Pulse Rate 70 06/01/25 13:13 Respiratory Rate 16 06/01/25 13:13 Blood Pressure 126/80 06/01/25 13:13 Pulse Oximetry 98 06/01/25 13:13 Oxygen Delivery Method Room Air 06/01/25 13:13 Course Orders Ordered: ED Orders 06/01/25 13:18 XR foot RT min 3V Stat Vital Signs Vital signs: Vital Signs - 8 hr 06/01/25 13:13 Temperature 97.4 F L Pulse Rate 70 Respiratory Rate 16 Blood Pressure 126/80 Pulse Oximetry 98 Oxygen Delivery Method Room Air MDM - Skin/Abscess/Foreign Bdy MDM Narrative Medical decision making narrative: 74-year-old male with past medical history atrial flutter, status post ablation presents to the ED with right-sided big toe pain. Concern for cellulitis versus gout versus fracture/dislocation versus other. X-ray was obtained which was without acute abnormalities. Patient's symptoms likely cellulitis versus gout. Antibiotics prescribed. Also recommend taking ibuprofen if gout. Recommend follow-up with PCP as soon as possible. ED return precautions discussed with patient. Patient verbalized understanding. Medical records reviewed: Yes Discharge Plan Departure Patient Disposition: Home Clinical Impression: Cellulitis Qualifiers: Site of cellulitis: extremity Site of cellulitis of extremity: lower extremity Laterality: right Qualified Code(s): L03.115 - Cellulitis of right lower limb Instructions: DI for Cellulitis -- Adult Activity Restrictions/Additional Instructions: You were evaluated in the emergency department today for swelling and pain of the right foot. The x-ray was normal. It is possible that you have a skin infection/cellulitis versus an episode of gout. You are being prescribed antibiotics for the cellulitis. You may also take ibuprofen in addition to the antibiotics to address the possibility of gout. Please follow-up with your PCP as soon as possible. Return to the emergency department if you have worsening symptoms. Prescriptions: New cephalexin 500 mg capsule 500 mg PO QID 5 Days Qty: 20 0RF No Action metoprolol succinate 50 mg tablet extended release 24 hr 75 mg PO DAILY metoprolol tartrate 25 mg tablet 12.5 mg PO BID PRN Eliquis 5 mg tablet 5 mg PO BID amlodipine 2.5 mg tablet 2.5 mg PO DAILY omeprazole 20 mg capsule,delayed release(DR/EC) 20 mg PO DAILY rosuvastatin 5 mg tablet 5 mg PO .COMPLEX Rx Instructions: 5mg PO AM Sunday/Sunday/Sunday only magnesium aspart,citrate,oxide 400 mg magnesium capsule PO prazosin 1 mg capsule 1 mg PO BEDTIME cyclobenzaprine 5 mg tablet 5 mg PO TID PRN (Reason: muscle spasm) Qty: 20 0RF CA PANTOTHENATE/FOLIC ACID/VIT (MULTIVITAMIN) 1 tab PO QDAY Qty: 0 colchicine 0.6 mg capsule 0.6 mg PO BID Qty: 28 0RF ibuprofen 400 mg tablet 400 mg PO Q8H Qty: 30 0RF omeprazole 20 mg tablet,delayed release (DR/EC) 20 mg PO BID Qty: 30 0RF Referrals: Earl Ny DO [Primary Care Provider, Family Practice] Stand Alone Forms: Patient Portal/API
== END 2025-06-01 15:01 | disposition home or self-care (01) ==
PROVIDERS: Emergency Provider Student in an Organized Health Care Education/Training Program; PCP Family Medicine
DX: L03.031 Cellulitis of right toe (principal)
CPT/HCPCS: 73630; 99281; 99283